=== PATIENT | male | born 1975 | race Two or more races ===

== ENCOUNTER 2023-03-06 10:22 | Outpatient (CLI) | payer OTHER | END 2023-03-06 10:29 | disposition home or self-care (01) | LOC: SONOGRAMA 10:22 | PROVIDERS: ATTEND Pathology Anatomic Pathology & Clinical Pathology | DX: D44.0 Neoplasm of uncertain behavior of thyroid gland (principal); E07.9 Disorder of thyroid, unspecified ==

== ENCOUNTER 2023-05-01 09:01 | Outpatient (CLI) | payer OTHER | END 2023-05-01 09:07 | disposition home or self-care (01) | LOC: SONOGRAMA 09:01 | PROVIDERS: ATTEND Pathology Anatomic Pathology & Clinical Pathology | DX: D44.0 Neoplasm of uncertain behavior of thyroid gland (principal); E07.9 Disorder of thyroid, unspecified ==